=== PATIENT | female | born 1950 | race Caucasian/White ===

== ENCOUNTER 2024-02-06 08:39 | Inpatient (IN) | payer OTHER, MEDICARE, BC ==
[2024-02-06] VITALS (8 sets, daily range): BP systolic 94–118; BP diastolic 49–69
[~2024-02-06] VITALS: Ht 172.7 cm; Wt 100.0 kg
--- NOTE | 2024-02-06 07:36 | NUR ---
SPOKE WITH SON MELINDA ON THE PHONE REGARDING HER MRI, HE ANSWERED ALL THE QUESTIONS AND STATED " THE ONLY IMPLANTS SHE HAS ARE METAL FILLINGS" WHEN ASKED IF HE GAVE CONSENT FOR THE MRI HE STATED "YES, DO WHAT YOU HAVE TO DO TO MAKE HER BETTER AND FIND OUT WHAT IS WRONG". CALLED KLARISSA DUFF TO SCHEDULE TIME.
[2024-02-06] MEDS ORDERED: HYDROmorphone HCL 1 MG/ML SYR IV PRN ×2 (08:45→11:00)
[2024-02-06 09:15] LABS: BASOPHILS 0.6 % (0-2); EOSINOPHILS 4.6 % (0-6); HEMATOCRIT 41.8 % (35.0-50.0); HEMOGLOBIN 14.2 g/dL (12.0-18.0); LYMPHOCYTES 23.6 % (24-44); MCH 30.2 (27-36); MCHC 33.9 g/dl (30-36); MCV 89.2 fl (81-99); MONOCYTES 9.1 % (0-12); NEUTROPHILS 62.1 % (39-80); PLATELET COUNT 214 K/uL (140-440); RBC 4.68 M/ul (4.3-5.7); RDW 13.8 (10.5-15.0)
[2024-02-06] MEDS ORDERED: BENICAR20 MG PO (09:19)
[2024-02-06 09:30] LABS: ALBUMIN 3.5 g/dL (3.4-5.0); ALBUMIN/GLOBULIN RATIO 1.06 (1.1-2.4); ANION GAP 9.2 (7-21); BILIRUBIN, TOTAL 0.4 ng/dL (0.2-1.0); BUN/CREATININE RATIO 26.88 (6.0-28.6); CALCIUM 9.2 mg/dL (8.5-10.1); CREATININE, SERUM 0.93 mg/dL (0.55-1.02); POTASSIUM 4.2 mmol/L (3.5-5.1); PROTEIN, TOTAL 6.8 g/dL (6.4-8.2)
[2024-02-06] MEDS ORDERED: SODIUM CHLORIDE 0.9% 1,000 ML IV ONE (09:45)
[2024-02-06] MEDS ORDERED: LIDOCAINE HCL 2% 5 ML SDV ONE ×2 (11:03→11:05)
[2024-02-06] MEDS ORDERED: BUPIVACAINE 0.75% IN DEXTROSE 2 ML AMP ONE (11:03)
[2024-02-06] MEDS ORDERED: BUPIVACAINE HCL 0.5% 30 ML VIAL ONE (11:05)
[2024-02-06] MEDS ORDERED: DEXAMETHASONE SOD PHOS 4 MG/ML VIAL ONE (11:08)
[2024-02-06] MEDS ORDERED: LACTATED RINGER'S 1,000 ML IV ONE (11:08)
[2024-02-06] MEDS ORDERED: ondansetron HCL 4 MG/2 ML VIAL ONE (11:08)
[2024-02-06] MEDS ORDERED: MIDAZOLAM HCL 2 MG/2 ML VIAL ONE (11:08)
[2024-02-06] MEDS ORDERED: METOCLOPRAMIDE HCL 10 MG/2 ML SDV ONE (11:08)
[2024-02-06] MEDS ORDERED: propofoL 200 MG/20 ML VIAL ONE (11:08)
[2024-02-06] MEDS ORDERED: KETOROLAC TROMETHAMINE 30 MG/ML VIAL ONE (11:08)
[2024-02-06] MEDS ORDERED: fentaNYL citrate 100 MCG/2 ML VIAL ONE (11:09)
[2024-02-06] MEDS ORDERED: KETAMINE in NS 50 MG/5 ML SYR ONE (11:09)
[2024-02-06] MEDS ORDERED: FAMOTIDINE 20 MG/ 2 ML VIAL ONE (11:09)
[2024-02-06] MEDS ORDERED: CEFAZOLIN SODIUM 2 GM/20 ML SYR ONE (11:55)
[2024-02-06] MEDS ORDERED: CEFAZOLIN SODIUM 2 GM/20 ML SYR IV ONE (12:00)
[2024-02-06] MEDS ORDERED: TRANEXAMIC ACID 2,000 MG in SODIUM CHLORIDE 0.9% 100 ML IV ONE ×2 (12:00→14:55)
[2024-02-06] MEDS ORDERED: INTRA-ARTICULAR ANALGESIC INJECTION XX ONE (12:15)
[2024-02-06] MEDS ORDERED: droPERidol 5 MG/2 ML VIAL IV PRN (13:00)
[2024-02-06] MEDS ORDERED: MORPHINE SULFATE 10 MG/ML VIAL IV PRN (13:00)
[2024-02-06] MEDS ORDERED: IBLOOD GLUCOSE TEST STRIP 1 EA TEST VI PRN (13:00)
[2024-02-06] MEDS ORDERED: NALOXONE HCL 0.4 MG SYR IV PRN (13:00)
[2024-02-06] MEDS ORDERED: METOCLOPRAMIDE HCL 10 MG/2 ML SDV IV PRN (13:00)
[2024-02-06] MEDS ORDERED: PROCHLORPERAZINE EDISYLATE 10 MG/2 ML VIAL IV PRN (13:00)
[2024-02-06] MEDS ORDERED: ondansetron HCL 4 MG/2 ML VIAL IV PRN (13:00)
[2024-02-06] MEDS ORDERED: fentaNYL citrate 50 MCG/ML SDV IV PRN (13:00)
--- NOTE | 2024-02-06 13:35 | NUR ---
PT NOT AVAILABLE FOR VISIT. PROVIDED PRAYER.
--- NOTE | 2024-02-06 13:58 | NUR ---
UR CLINICAL REVIEW: 2 MN FOR [facility] INPT CRITERIA FOR PAIN CONTROL MEDICARE INPT 02/06/24 @ 1100 ORDER MATCHES REG NO AUTH REQUIRED PER MEDICARE GUIDELINES DISCHARGE TO HOME IN 3-4 DAYS PENDING SURGICAL OUTCOME.
[2024-02-06] MEDS ORDERED: HYDROCODONE/ACETA 7.5/325 TAB PO PRN (14:00)
[2024-02-06] MEDS ORDERED: KETOROLAC TROMETHAMINE 30 MG/ML VIAL IV PRN (14:00)
[2024-02-06] MEDS ORDERED: ondansetron HCL 4 MG TAB PO PRN (14:00)
--- NOTE | 2024-02-06 14:31 | NUR ---
02/06/24 1431 TAYE MOHAMUD 1337 PT ARRIVED TO PACU VIA STREACHER. PT HAS NASAL AIRWAY IN PLACE, PT ON 10L O2 VIA MASK. PT BREATHING EQUAL AND UNLABORED. REPORT TAKEN FROM STACY Bliss CRNA. ALL MONITORS ATTACHED. PT RESPONSIVE TO VERBAL STIMULI. PT REPORTS NO PAIN OR NAUSEA AT THIS TIME. SPINAL T6 1339 PT O2 LOWERED TO 6L VIA FACE MASK. PT OXYGEN SATURATION STAYING ABOVE96% 1340 PT BELONGINGS TAKEN TO ROOM #109 BY BERNADINE DAWSON. 1342 NASAL AIRWAY REMOVED. PT BREATHING EQUAL AND UNLABORED 1348 XRAY CALLED. PT REMOVED FROM OXYGEN PT O2 SAT STAYING ABOVE 90% ON RA. 1355 SPINAL STILL AT T6. PT REPORTING NO PAIN OR NAUSEA. 1359 MINER AT BEDSIDE. ASSESSING BLOOD PRESSURE, INFORMED THAT PT'S BP IN ER WAS AROUND WHERE IT IS NOW. MINER NO NEW ORDERS AT THIS TIME. 1414 JASON HOES ON, CRYO CUFF IN PLACE, SCDS ON. EDUCATED ON DEEP BREATHING AND COUGHING. 1421 PLACED PT ON 2L OF OXYGEN PT OXYGEN SATURATION DIPPING TO 86% ON RA. 1425 PT SITTING UPRIGHT 30 DEGREES IN BED. TO ASSIST WITH OXYGEN. 1429 PT OXYGEN SATURATION UP TO ABOVE 96% ON 2L VIA NASAL CANULLA. PT REPORTING NO PAIN OR NAUSEA AT THIS TIME. PT RESTING WITH EYES CLOSED. 1430 PT OXYGEN SATURATION STAYING ABOVE 98% ON 2L. TITRATED PT OFF OF O2, OXYGEN ABOVE 96% ON RA.
[2024-02-06] MEDS ORDERED: GABAPENTIN 300 MG CAP PO SCH (15:00)
--- NOTE | 2024-02-06 15:09 | NUR ---
PATIENT REMAINS LETHARGIC, SPOUSE, CARMELO, IN ROOM. HE PRIMARILY ANSWERS QUESTIONS. DEMOGRAPHICS VERIFIED. PATIENT AND SPOUSE RECENTLY MOVED TO [place], [place]. SHE HAS A PCP IN [place], ASHELY BACA MD. HAS NO DME. INFORMED IF SHE NEEDS A WALKER, CM MAY ASSIST WITH GETTING HER ONE. PREFERS [facility] IN [facility]. STATES SHE HAS STAIRS IN HOUSE, SPOUSE STATES "THEY'RE NO HER FAVORITE," BUT SHE IS ABLE TO NAVIGATE STAIRS AT BASELINE. PATIENT DRIVES AT BASELINE, HOWEVER SPOUSE IS ABLE TO ASSIST. DENIES ANY FINANCIAL HARDSHIP. THEY ARE ABLE TO PAY UTILITIES, OBTAIN FOOD AND MEDICATIONS WITHOUT DIFFICULTY. DISCUSSED POTENTIAL OUTPATIENT THERAPY NEEDS, BOTH ARE UNSURE OF OUTPATIENT PT CLINICS IN [place]. WILL RESEARCH AND PROVIDE A LIST PRIOR TO DC. DENY OTHER NEEDS AT THIS TIME.
--- NOTE | 2024-02-06 15:30 | NUR ---
PT ARRIVES TO FLOOR AT 1445. PT AT THE BEDSIDE. PT AWAKE IN BED, ABLE TO ANSWER ADMISSION QUESTIONS APPROPRIATELY. PT DENIES PAIN, NAUSEA, AND SOB. JASON HOSE IN PLACE, HEEL PROTECTORS IN PLACE, SCDs IN PLACE, CRYO CUFF IN PLACE TO R HIP. REPORT RECEIVED FROM EUNICE KOTHARI FROM PACU. PT ABLE TO MOVE TOES ON R FOOT, NO MOVEMENT ON L, PT STATES BLE REMAIN NUMB FROM SURGERY. PT TAKES PO MEDICATIONS AND WATER, TOLERATES WELL W/O DIFFICULTY. VSS. PT STATES NO NEEDS AT THIS TIME, CALL LIGHT WITHIN REACH. I.S. DEVICE AND EDUCATION GIVEN TO PT, PT VERBALIZES UNDERSTANDING.
--- NOTE | 2024-02-06 15:57 | NUR ---
LIST OF PT CLINICS CLOSE TO PATIENT HOME IN [facility] PROVIDED TO PATIENT AND SPOUSE. WILL REVIEW OPTIONS TOMORROW.
--- NOTE | 2024-02-06 16:18 | EKG ---
[facility] [address] [place], [place] [address] Signed Normal sinus rhythm with sinus arrhythmia Right bundle branch block Abnormal ECG No previous ECGs available Confirmed by Sonya Johns MD ([id number]) on 02/06/2024 4:17:54 PM Electronically Signed By: SONYA JOHNS MD 02/06/24 1618 PATIENT NAME: TAMMY KENT Electrocardiogram DATE OF : 52 PHYSICIAN: SONYA JOHNS MD REPORT #: [id number] REPORT IS CONFIDENTIAL AND NOT TO BE RELEASED WITHOUT AUTHORIZATION
--- NOTE | 2024-02-06 17:34 | NUR ---
BLADDER SCAN DONE UPON RN REQUEST. SCANNED [id number], RN NOTIFIED.
[2024-02-06] MEDS ORDERED: SODIUM CHLORIDE 0.9% 500 ML IV ONE (17:45)
--- NOTE | 2024-02-06 17:45 | NUR ---
THIS RN CALLS DR. DOWNEY FUEL CELL BUILDER PHONE, SPEAKS WITH MILAGRO ABOUT PT BLADDER SCAN RESULT OF 506. MILAGRO STATES TO PLACE PUREWICK, BLADDER SCAN AGAIN IN TWO HOURS OR TO STRAIGHT CATH IF PT BEGINS TO FEEL PAIN OR DISCOMFORT FROM FULL BLADDER. PT EDUCATION ON PLAN, PT VERBALIZES UNDERSTANDING. CALL LIGHT WITHIN REACH.
--- NOTE | 2024-02-06 17:59 | NUR ---
medications reconciled using pharmacy records
--- NOTE | 2024-02-06 18:06 | NUR ---
PT EATING CLEAR LIQUIDS TRAY. VSS. PT DENIES NAUSEA, PAIN OR SOB AT THIS TIME. JASON HOSE, SCDs, HEEL PROTECTORS, AND CRYO CUFF IN PLACE. PT PRACTICES I.S. USE AT THIS TIME. PT EDUCATION ON VOIDING STATUS, PT VERBALIZES UNDERSTANDING. PUREWICK IN PLACE. PT STATES NO FURTHER NEEDS AT THIS TIME, CALL LIGHT WITHIN REACH.
--- NOTE | 2024-02-06 19:41 | NUR ---
REPORT RECEIVED FROM EUNICE BARGER. IN ROOM, BOLUS COMPLETE. IV SL WNL. pt RESTING IN BED WITH CALL LIGHT IN REACH. HOB LOWERED PER REQUEST, NO ADDITIONAL NEEDS.
[2024-02-06] MEDS ORDERED: CEFAZOLIN SODIUM 2 GM/20 ML SYR IV SCH (20:00)
--- NOTE | 2024-02-06 20:49 | NUR ---
bladder scan reveals 310ml. pt deneis need to urinate. pt tolerated well. denies any needs at this time. primary rn in room.
[2024-02-06] MEDS ORDERED: MAGNESIUM HYDROXIDE 30 ML UDC PO SCH (21:00)
[2024-02-06] MEDS ORDERED: SENNOSIDES 1 TAB PO SCH (21:00)
--- NOTE | 2024-02-06 21:00 | NUR ---
PHONE CALL FROM , NOTIFIED MD THAT pt HAS VOIDED. BLADDER SCAN 310 POST VOID. ASSESSMENT COMPLETE. pt STATES CSM INTACT BLE, BUE. DENIES PAIN AT REST, STATES "IT HURTS WHEN I MOVE". PRN TORADOL ADMINISTERED. DRESSING CDI RIGHT HIP. CRYO CUFF REFILLED AND IN PLACE. CPOX ON, SPO2 WNL WITH 0.5L OXYGEN BY NC ON. IV SL WNL. PO FLUIDS PROVIDED, pt DENIES ADDITIONAL NEEDS. JASON HOSE AND SCDS ON. LIGHTS OFF IN ROOM.
--- NOTE | 2024-02-06 23:59 | NUR ---
CHECKED ON pt. RESTING IN BED WITH EYES CLOSED. BREATHING UNLABORED. SPO2 WNL, CPOX ON. 0.5L OXYGEN BY NC IN PLACE.
[2024-02-07] VITALS (10 sets, daily range): BP systolic 100–115; BP diastolic 52–67
--- NOTE | 2024-02-07 02:01 | NUR ---
pt SLEEPING, AWAKENS TO VOICE. VSS, ATTEMPT TO TITRATE TO RA, SPO2 90%, 1L OXYGEN BY NC REMAINS IN PLACE. CSM INTACT. pt DENIES PAIN. DRESSING CDI RIGHT HIP. CRYO CUFF REFILLED WITH ICE AND IN PLACE. NEW PUREWICK PLACED AT THIS TIME, CANNISTER EMPTIED. CALL LIGHT IN REACH. ICE WATER REFILLED, pt TAKING DRINKS AT THIS TIME.
--- NOTE | 2024-02-07 05:08 | NUR ---
pt SLEEPING, AWAKENS TO VOICE. VS COMPLETE, STABLE. pt DENIES PAIN. PRN TORADOL ADMINSITERED PER REQUEST. SCHEDULED ANTIBIOTIC ADMINISTERED. CRYO CUFF WITH ICE IN PLACE. CALL LIGHT IN REACH.
[2024-02-07] MEDS ORDERED: TRANEXAMIC ACID 2,000 MG in SODIUM CHLORIDE 0.9% 100 ML IV SCH (07:00)
[2024-02-07] MEDS ORDERED: CEFAZOLIN SODIUM 2 GM/20 ML SYR IV SCH (07:00)
--- NOTE | 2024-02-07 07:40 | NUR ---
RECEIVED REPORT FROM EUNICE ONTIVEROS. PT AWAKE IN BED, DENIES PAIN, NAUSEA AND SOB AT THIS TIME. PT DENIES ANY NEEDS AT THIS TIME. CALL LIGHT WITHIN REACH.
[2024-02-07] MEDS ORDERED: CELECOXIB 200 MG CAP PO SCH (08:00)
--- NOTE | 2024-02-07 09:09 | NUR ---
SPOKE TO PATIENT ABOUT THE DISCHARGE PLAN. THE PATIENT WILL NEED A WAKER. CM IS WAITING FOR TO SIGN ORDERS FOR A WALKER. THE PATIENT WILL USE [facility] FOR THE WALKER. ALSO THE PATIENT IS CALLING HER [facility] PRIMARY PROVIDER TO ARRANGE A NEW PCP BECAUSE PATIENT HAS MOVED TO [facility].
--- NOTE | 2024-02-07 10:06 | NUR ---
PT AWAKE IN BED, VISITING WITH FAMILY AT THE BEDSIDE. PT DENIES PAIN, SOB, AND NAUSEA. DRESSING TO R HIP C/D/I. PUREWICK REMAINS IN PLACE, PHYSICAL THERAPY TO BEDSIDE TO WORK WITH PT. NO NEW PUREWICK IN PLACE AT THIS TIME D/T ASSESSING PT MOVEMENT AND ABILITY TO AMBULATE TO BSC OR RESTROOM. PT GIVEN PRN PAIN MEDICATION FOR PHYSICAL THERAPY. PT STATES NO FURTHER NEEDS AT THIS TIME, CALL LIGHT WITHIN REACH.
--- NOTE | 2024-02-07 11:02 | NUR ---
SET PATIENT UP TO BRUSH HER TEETH AND WASH HER FACE.
--- NOTE | 2024-02-07 11:44 | NUR ---
SHELLY HUMPHREY AT THE BEDSIDE. PT AWAKE AND UP TO CHAIR, STATES PHYSICAL THERAPY "WENT WELL". PT DENIES PAIN AT THIS TIME, STATES R HIP IS MILDLY "ACHY" WITH MOVEMENT. PT DENIES ANY CURRENT NEEDS, CALL LIGHT WITHIN REACH.
--- NOTE | 2024-02-07 12:37 | NUR ---
HAS SLEEP APNEA AND CANNOT TOLERATE CPAP. CONTINUOUS OXIMETER IN PLACE FOR DURATION OF STAY.
--- NOTE | 2024-02-07 12:39 | NUR ---
ORDER FOR A FRONT WHEELWAKER SENT TO [facility] [place].
--- NOTE | 2024-02-07 13:31 | NUR ---
WENT TO CHECK ON PATIENT. COMPLETEDD MEAL, I AND O WRITTEN ON SHEET. PATIENT DECLINES ANY PAIN. PATIENT IS ALERT AND ORIENTATED. PATIENT WAS COLD SO I PROVIDED A BLANKET. CALL LIGHT PLACED WITH IN REACH OF PATIENT SHE DOESN'T HAVE ANY NEEDS AT THIS TIME.
--- NOTE | 2024-02-07 14:50 | NUR ---
STUDENT NURSE SHOWN HOW TO USE SHOWER CAP NO RINSE PER PATIENTS REQUEST.
--- NOTE | 2024-02-07 14:56 | NUR ---
PT SITTING UP IN CHAIR, 1500 MEDICATIONS GIVEN. PT STATES PAIN IS FINE, JUST ACHE AT THIS TIME. ICE PACK IN PLACE AND FEELS GOOD PER PATIENT. CALL LIGHT WITHIN REACH, ALL PT CARE NEEDS MET AT THIS TIME.
--- NOTE | 2024-02-07 15:03 | NUR ---
WALKER WILL BE DELIVERED THIS AFTEROON. PER FRANDY.
--- NOTE | 2024-02-07 15:45 | NUR ---
PT UP TO CHAIR, AMBULATES TO RESTROOM WITH FWW AND SBA. PT AMBULATES DOWN HALLWAY, BACK TO ROOM. PT DENIES NEED FOR PAIN MEDICATION AT THIS TIME, STATES MINIMAL ACHING IN R HIP AT THIS TIME. PT BACK UP TO CHAIR, STATES NO NEEDS AT THIS TIME, CALL LIGHT WITHIN REACH.
--- NOTE | 2024-02-07 16:30 | NUR ---
FRANDY AT THE BEDSIDE. PT UP TO CHAIR. CALL LIGHT WITHIN REACH.
--- NOTE | 2024-02-07 17:33 | NUR ---
PT UP TO CHAIR WATCHING TELEVISION, EATING DINNER. PT DENIES ANY NEEDS AT THIS TIME. CALL LIGHT WITHIN REACH.
--- NOTE | 2024-02-07 18:33 | NUR ---
PT UP TO CHAIR, PT UP TO RESTROOM WITH FWW AND SBA. PT USES FWW FROM [facility] AT THIS TIME SHE WAS CONCERNED ABOUT HEIGHT OF WALKER. PT STATES SHE FEELS STEADY WITH THIS WALKER AT THIS TIME. PT BACK UP TO CHAIR, REQUESTS ICE WATER AND WARM BLANKET, GIVEN. PT STATES NO FURTHER NEEDS AT THIS TIME, CALL LIGHT WITHIN REACH.
--- NOTE | 2024-02-07 19:05 | NUR ---
SHIFT REPORT RECEIVED FROM DAYSHIFT RN DENITA AT BEDSIDE, pt AWAKE AND WATCHING TV. ON RA, CPOX IN ROOM SHOWING SPO2 92%, HR 85. RR EVEN AND UNLABORED, NO NEEDS OR CONCERNS VERBALIZED. DRESSING TO RIGHT HIP C/D/I, CYROCUFF, SCD'S, AND JASON HOSE IN PLACE.
--- NOTE | 2024-02-07 20:08 | NUR ---
ASSESSMENT COMPLETE, VSS. pt DENIES PAIN AT THIS TIME, DISCUSSING POC [facility] AND POSSIBLY A PRN PAIN MEDICATION. pt UP SBA WITH FWW TO BATHROOM-STEADY ON FEET. NO CHANGES TO RIGHT HIP DRESSING, REMAINS C/D/I. JASON HOSE AND CYROCUFF IN PLACE. CMS INTACT, pt DENIES NUMBNESS AND TINGLING. FRESH WATER PROVIDED, pt INSTRUCTED TO USE CALL LIGHT BEFORE AMBULATING BACK TO BED, pt VERBALIZED UNDERSTANDING.
--- NOTE | 2024-02-07 20:26 | NUR ---
pt UP SBA WITH FWW AND AMBULATED FROM ROOM TO LOWER RN STATION AND BACK TO ROOM, STEADY ON FEET. NO CHANGE TO RIGHT HIP DRESSING. SCHEDULED MEDS GIVEN-SEE EMAR-pt WISHES TO HAVE SCHEDULED BOWEL MEDS D/T BM FROM DAYSHIFT BEING "HARD". pt WANTS TO WAIT FOR PRN PAIN MEDICATION UNTIL CLOSER TO BED. CALL LIGHT IN REACH, BLE ELEVATED IN RECLINER.
--- NOTE | 2024-02-07 21:07 | NUR ---
CPOX ALARMING, SPO2 REPORTS 88%-pt DEMONSTRATED USE OF IS REACHED APPROX 1,000 MARKER AND SPO2 IMPROVED TO LOW 90'S. pt DENEIS SOB AND REMAINS ON RA, RR EVEN AND UNLABORED. DENIES ADDITIONAL NEEDS AND CONCERNS. CALL LIGHT IN REACH.
--- NOTE | 2024-02-07 22:11 | NUR ---
CALL LIGHT ANSWERED. PT NEEDED TO USE THE RESTROOM. LITHOGRAPH OPERATOR SBA WITH FWW TO BATHROOM. PT VOIDED AND WAS ASSISTED TO BED. SCDS AND HEEL PROTECTORS PLACED AND CPOX RECONNECTED. PT GIVEN A WARM BLANKET UPON REQUEST. PT STATES NO FURTHER NEEDS AT THIS TIME. CALL LIGHT WITHIN REACH.
--- NOTE | 2024-02-07 22:20 | NUR ---
PRN PAIN MEDICATION GIVEN-SEE EMAR. pt REPORTS PAIN 3/10, BUT CAN INCREASE WITH MOVEMENT. NO FURTHER NEEDS, CALL LIGHT IN REACH.
--- NOTE | 2024-02-07 23:27 | NUR ---
rounded on pt, cpox alarming, spo2 upper 80's on ra, charge authorizer marie in room and placing pt on 1lnc-unmanaged rick per shift report. cpox remains in place, spo2 returning to the 90's.
--- NOTE | 2024-02-08 00:39 | NUR ---
pt RESTING QUIETLY IN BED WITH EYES CLOSED AND ON 1LNC, CPOS IN ROOM SHOWS SPO2 93% AND HR WNL. JASON HOSE AND SCD'S IN PLACE ALONG WITH CYROCUFF. CALL LIGHT IN REACH.
--- NOTE | 2024-02-08 02:36 | NUR ---
ROUNDED ON pt, pt RESTING QUIETLY. AWOKE TO VOICE. CMS REMAINS INTACT. STRONG BILATERAL PEDAL AND RADIAL PULSES. ACTICOAT DRESSING TO RIGHT HIP REMAINS C/D/I. pt UP SBA WITH FWW AND IN BATHROOM, INSTRUCTED TO USE BATHROOM CALL LIGHT ONCE READY TO RETURN TO BED, pt VERBALIZED UNDERSTANDING. BILATERAL SCD'S, JASON HOSE, HEEL PROTECTORS, AND CYROCUFF IN PLACE.
--- NOTE | 2024-02-08 04:43 | NUR ---
pt had uneventful evening, pain controlled with oral prn pain medication-see emar. vss, pt required 1lnc while asleep d/t unmanaged sleep apnea-cpox in room. denied nausea, tolerating regular diet. bt active, no bm noted this shift. voiding throughout the shift. sba with fww, calling approperiately-bilateral heel protectors, scd's, and libby hose in place. acticoat c/d/i to right hip-curocuff in place.
--- NOTE | 2024-02-08 05:05 | NUR ---
rounded on pt, pt resting quietly in bed with eyes closed. on 1lnc, cpox in room shows spo2 93%, hr 70's to 80's. no distress noted, call light and other belongings in reach.
--- NOTE | 2024-02-08 06:38 | NUR ---
in room to round on pt, pt awake and resting in bed recently back from bathroom per pt with help from art glass designer. pt placed back on 1lnc, new spo2 finger probe in place. bilateral libby hose, sdc's, and heel protectors on and cryro cuff to right hip. no shadowing noted to right hip dressing, remains c/d/i. no additional needs or concerns verbalized, call light in reach.
--- NOTE | 2024-02-08 08:59 | NUR ---
CHAY FROM SHELLY HUMPHREY TO CONTINUE PATIENT'S HOME MEDICATION FOR BENICAR. EDUCATION TO BE PROVIDED TO PATIENT TO MONITOR BP; TAKE MED IF BP 130/85 OR GREATER.
[2024-02-08 09:16] VITALS: BP 123/60
--- NOTE | 2024-02-08 09:18 | OR ---
[facility] [address] [place], [place] [address] Signed DATE OF OPERATION: 02/06/2024 SURGEON: Sarwat Gavin MD PREOPERATIVE DIAGNOSIS: Femoral neck fracture, right displaced, POSTOPERATIVE DIAGNOSIS: Femoral neck fracture, right displaced, PROCEDURE: Right bipolar hemiarthroplasty. DIRECT CARE SPECIALIST: None. ANESTHESIA: Spinal. BLOOD LOSS: 175 mL. IMPLANTS: Size 10 Bimetric stem, -3 x 28 head and a 51 mm bipolar. BRIEF HISTORY: Christa 74-year-old female, who suffered a fall off a small deck this morning fracturing her right hip. She was transported by EMS to the emergency department, where radiographs showed a displaced femoral neck fracture. Risks and benefits of operative treatment were discussed with her. She was already n.p.o. and quite healthy. She wished to proceed with surgery. DESCRIPTION OF PROCEDURE: Once consent was obtained, she was taken to the operating room. After adequate anesthesia, she was placed on the operating room table in the left lateral decubitus position. The downside pressure points were well padded. An axillary roll was placed. The hip was prepped and draped in a standard sterile fashion. The hip was approached through a standard 6 inch incision and was eventually enlarged to 7 inches. This was carried through skin and subcutaneous tissue and directly down on the IT band. This was divided longitudinally. The vastus lateralis was divided from the tip of the trochanter Electronically Signed By: SARWAT GAVIN MD 02/08/24 0918 PATIENT NAME: CHRISTA KENT OPERATIVE REPORT DATE OF : 52 REPORT #: [id number] PHYSICIAN: SARWAT GAVIN MD PCP: NO PRIMARY CARE PHYSICIAN REPORT IS CONFIDENTIAL AND NOT TO BE RELEASED WITHOUT AUTHORIZATION [facility] [address] [place] [address] [place], [place] [address] Signed along the anterior margin distally and subperiosteally elevated to the level of the lesser trochanter. The gluteus medius and capsule were then split from the tip of the trochanter to the acetabular rim and peeled off the fracture site anteriorly. The med tome was removed and the femoral head was then removed using the Schanz pin. Once this was removed, she was taken to the back table and measured to 50 or 51. The 50 was trialed and felt to be a little bit small. We went to 51. Attention was turned to the proximal femur. The proximal femur was opened using cookie cutter followed by the Charnley awl. The distal femur was then reamed to a 9 and broached initially to an 8. However, we tried to put the 8 stem in and it did not lock in very well. I then broached up to a 10 and placed a 10 stem, which then locked in press-fit in a good position. We placed the -3 head and 51 bipolar on and reduced the hip. She had good leg lengths. She had excellent stability and negative Shuck. The wound was then copiously irrigated with Surgiphor followed by normal saline. The capsule was closed using #1 FiberWire. The vastus and IT band layers were closed independently using #1 Stratafix, subcutaneous tissue with 0 Stratafix and the skin with rocio. Wound was dressed with an Acticoat-7 dressing. She was awakened, taken to recovery room in satisfactory condition. All sponge, needle, and instrument counts were correct. Sarwat Gavin MD [id number]/KRAIGL /[id number] Copies: ~ Electronically Signed By: SARWAT GAVIN MD 02/08/24 0918 PATIENT NAME: CHRISTA KENT OPERATIVE REPORT DATE OF : 52 REPORT #: [id number] PHYSICIAN: SARWAT GAVIN MD PCP: NO PRIMARY CARE PHYSICIAN REPORT IS CONFIDENTIAL AND NOT TO BE RELEASED WITHOUT AUTHORIZATION
--- NOTE | 2024-02-08 09:24 | NUR ---
PATIENT ALERT AND ORIENTED, UP IN RECLINER. STATES SHE RECEIVED WALKER YESTERDAY BUT IT IS TOO SHORT. STATES SHE WILL TAKE IT AND GET A TALLER WALKER WHEN SHE GETS HOME. SHE DOES NOT WANT TO WAIT FOR A NEW WALKER TO BE BROUGHT INTO FACILITY. STATES SHE IS READY TO DC WHEN ABLE, IMM LETTER PROVIDED AND REVIEWED. DENIES ANY OTHER NEEDS FROM CM AT THIS TIME.
[2024-02-08] MEDS ORDERED: HYDROCODON-ACE1 EA11 PO (10:05)
[2024-02-08] MEDS ORDERED: GABAPENTIN300 MG PO (10:05)
[2024-02-08] MEDS ORDERED: CELECOXIB200 MG PO (10:05)
--- NOTE | 2024-02-08 10:57 | NUR ---
ADMIN TWO TABS NORCO 7.5/325MG PO FOR REPORTS OF 6/10 RIGHT HIP PAIN.
[2024-02-08 11:00] VITALS: BP 111/58
--- NOTE | 2024-02-08 11:27 | NUR ---
PATIENT BEING DISCHARGED. IV REMOVED FROM RIGHT ARM WITHOUT ANY COMPLICATIONS. IV SITE BANDAGED WITH GAUZE AND COBAN. ASSISTED PATIENT TO THE RESTROOM. PATIENT THEN PLACED IN WHEELCHAIR AND DISCHARGED TO PERSONAL VEHICLE.
== END 2024-02-08 11:13 | disposition home or self-care (01) | DRG 522 ==
LOC: ED 08:39 → MS 11:16
PROVIDERS: Emergency Medicine; ADMIT Specialist; ATTEND Specialist
PROC: 0SRR0JA Replacement of Right Hip Joint, Femoral Surface with Synthetic Substitute, Uncemented, Open Approach (ICD-10-PCS; principal; 2024-02-06 11:30)
DX: S72.001A Fracture of unspecified part of neck of right femur, initial encounter for closed fracture (principal); W18.30XA Fall on same level, unspecified, initial encounter; I10 Essential (primary) hypertension; Z90.49 Acquired absence of other specified parts of digestive tract; Z88.0 Allergy status to penicillin; Z79.899 Other long term (current) drug therapy; Z71.6 Tobacco abuse counseling; Z71.41 Alcohol abuse counseling and surveillance of alcoholic
CPT/HCPCS: 01230; 36415; 51798; 64447; 71045; 72170; 73502; 80053; 85025; 93005; 93010; 94762; 97161; A9270; C1776; J0690; J1100; J1170; J1885; J2001; J2250; J2405; J2704; J2765; J3010; J3490; J7030; J7040; J7121